=== PATIENT | female | born 1990 | race African-American/Black ===

== ENCOUNTER 2023-06-22 17:44 | Emergency (ER) | payer MEDICAID ==
[~2023-06-22] VITALS: Ht 165.1 cm; Wt 75.0 kg
[~2023-06-22 17:44] MED LIST: NO MEDICATION
[2023-06-22 18:03] VITALS: BP 124/79; PULSE 93; RESP 16; TEMP 98.4; O2SAT 100
[2023-06-22] MEDS ORDERED: CEPH500C2 PO (18:56)
[2023-06-22] MEDS ORDERED: CETI10TA6 PO (18:56)
[2023-06-22] MEDS ORDERED: BO1 TP (18:56)
[2023-06-22] MEDS ORDERED: BACITRACIN ZINC OINT UDPKT TOP ONE (19:00)
== END 2023-06-22 19:34 | disposition home or self-care (01) ==
LOC: ER 17:44
DX: S90.521A Blister (nonthermal), right ankle, initial encounter (principal); X58.XXXA Exposure to other specified factors, initial encounter; Y93.89 Activity, other specified; Y92.89 Other specified places as the place of occurrence of the external cause; Y99.8 Other external cause status
CPT/HCPCS: 99281

== ENCOUNTER 2023-11-08 11:40 | Emergency (ER) | payer MEDICAID ==
[~2023-11-08] VITALS: Ht 165.1 cm; Wt 72.0 kg
[~2023-11-08 11:40] MED LIST changes: +BO1 TP; +CEPH500C2 PO; +CETI10TA6 PO
[2023-11-08 12:23] VITALS: BP 120/60; PULSE 85; RESP 18; TEMP 97.9; O2SAT 100
[2023-11-08] MEDS ORDERED: KETOROLAC 60MG/2ML VIAL IM ONE (13:30)
== END 2023-11-08 16:43 | disposition home or self-care (01) ==
LOC: ER 11:40
DX: M75.31 Calcific tendinitis of right shoulder (principal)
CPT/HCPCS: 81025; 73030; 73060; 99284; J1885; Z7610

== ENCOUNTER 2024-07-29 16:56 | Emergency (ER) | payer MEDICAID ==
[~2024-07-29] VITALS: Ht 165.1 cm; Wt 173.0 kg
[2024-07-29 17:16] VITALS: O2SAT 100
[2024-07-29] MEDS ORDERED: MUPI1OIN4 TP (19:38)
[2024-07-29 20:07] VITALS: BP 129/73; PULSE 62; RESP 18; TEMP 36.78072; O2SAT 98
== END 2024-07-29 20:09 | disposition home or self-care (01) ==
LOC: ER 16:56
DX: R21 Rash and other nonspecific skin eruption (principal)
CPT/HCPCS: 99281; 99283

== ENCOUNTER 2024-08-28 18:18 | Emergency (ER) | payer MEDICAID ==
[~2024-08-28] VITALS: Ht 165.1 cm; Wt 73.0 kg
[~2024-08-28 18:18] MED LIST changes: +MUPI1OIN4 TP
[2024-08-28 18:24] VITALS: O2SAT 100
[2024-08-28 18:39] VITALS: BP 122/75; PULSE 97; RESP 18; TEMP 98.4; O2SAT 100
[2024-08-28 21:42] LABS: CLARITY URINE CLEAR (CLEAR); COLOR URINE YELLOW (YELLOW); GLUCOSE URINE NEGATIVE (NEGATIVE); KETONES URINE TRACE (NEGATIVE); LEUKOCYTE ESTERASE URINE NEGATIVE (NEGATIVE); NITRITE URINE NEGATIVE (NEGATIVE); OCCULT BLOOD URINE NEGATIVE (NEGATIVE); PH URINE 5.5 (4.5-8.0); PROTEIN URINE NEGATIVE (NEGATIVE); SPECIFIC GRAVITY URINE 1.023 (1.005-1.030)
[2024-08-28] MEDS ORDERED: NAPR-681 PO (21:48)
== END 2024-08-28 22:35 | disposition home or self-care (01) ==
LOC: ER 18:18
DX: R51.9 Headache, unspecified (principal); R20.2 Paresthesia of skin
CPT/HCPCS: 81003; 81025; 99283

== ENCOUNTER 2024-11-03 06:46 | Emergency (ER) | payer MEDICAID ==
[~2024-11-03] VITALS: Ht 170.2 cm; Wt 80.1 kg
[~2024-11-03 06:46] MED LIST changes: +NAPR-681 PO
[2024-11-03 06:54] VITALS: O2SAT 100
[2024-11-03 07:06] VITALS: BP 131/85; PULSE 98; RESP 14; TEMP 98.6
== END 2024-11-03 09:23 | disposition home or self-care (01) ==
LOC: ER 06:46
DX: M25.511 Pain in right shoulder (principal); Z98.890 Other specified postprocedural states; Z79.899 Other long term (current) drug therapy
CPT/HCPCS: 73030; 76881; 99284